=== PATIENT | male | born 1965 | race Caucasian/White ===

== ENCOUNTER 2016-11-23 17:01 | Emergency (ER) | payer OTHER ==
[~2016-11-23] VITALS: Ht 177.8 cm; Wt 87.7 kg
[~2016-11-23 17:01] MED LIST: ATORVASTATIN CA20 MG PO; CALCIUM CARB1 TABLET PO; CELEXA20 MG PO; CELEXA40 MG PO; CHLORDIAZEPOXID25 MG PO; CITALOPRAM HBR20 MG PO; FOLIC ACID1 MG PO; GABAPENTIN100 MG PO; IMODIUM MS REL1 EACH PO; K-DUR20 MEQ PO; K-TAB10 MEQ PO; LIBRIUM25 MG PO; NEURONTIN300 MG PO; PANTOPRAZOLE SO40 MG PO; PROTONIX40 MG PO; REQUIP0.25 MG PO; THIAMINE HCL100 MG PO; TRAZODONE HCL50 MG PO; Thiamine,Vitamin B1 PO; VANCOCIN HCL125 MG PO; VITAMIN B-1100 MG PO; ZOFRAN ODT4 MG PO
[2016-11-23 17:36] LABS: MCH 32.8 PG (29.0-34.0); MCHC 35.5 G/DL (30.0-36.0); MCV 92.5 FL (86-99); PLATELET COUNT 165 K/uL (156-360); RBC DIS.WIDTH-CV 15.4 % (11.8-14.6); RBC DIS.WIDTH-SD 49.8 % (39-53); RED BLOOD COUNT 4.54 M/uL (4.00-5.50); WHITE BLOOD COUNT 8.7 K/uL (4.1-10.2)
[2016-11-23 17:47] LABS: CHLORIDE 89 mEq/L (99-109); POTASSIUM 2.7 mEq/L (3.7-5.4); SODIUM 137 mEq/L (136-147)
[2016-11-23 17:49] LABS: GLUCOSE 127 mg/dL (70-99)
[2016-11-23 17:50] LABS: ANION GAP 17 MEQ/L (2-14)
[2016-11-23 17:51] LABS: TOTAL BILIRUBIN 3.3 mg/dL (0.0-1.0)
[2016-11-23 17:52] LABS: ALKALINE PHOSPHATASE 145 IU/L (3-129)
[2016-11-23 17:53] LABS: GFR ESTIMATE (CALCULATED) > 59 mL/min/
[2016-11-23 17:54] LABS: UREA NITROGEN (BUN) 8 mg/dL (9-23)
[2016-11-23 19:01] LABS: SERUM ETHYL ALCOHOL < 10 mg/dL
[2016-11-23 21:00] VITALS: BP 143/99
== END 2016-11-23 21:01 | disposition home or self-care (01) ==
LOC: EME 17:01
DX: F10.239 Alcohol dependence with withdrawal, unspecified (principal); K70.10 Alcoholic hepatitis without ascites; E87.6 Hypokalemia; B19.20 Unspecified viral hepatitis C without hepatic coma; E11.9 Type 2 diabetes mellitus without complications; I10 Essential (primary) hypertension; R56.9 Unspecified convulsions; Z86.73 Personal history of transient ischemic attack (TIA), and cerebral infarction without residual deficits; Z86.14 Personal history of Methicillin resistant Staphylococcus aureus infection; Z87.891 Personal history of nicotine dependence
CPT/HCPCS: 80053; 81003; 85027; 86850; 86900; 86901; 99281; 99284; G0480; J2405; J3360; J7030

== ENCOUNTER 2017-01-05 13:38 | Inpatient (IN) | payer OTHER ==
[~2017-01-05] VITALS: Ht 180.3 cm; Wt 90.0 kg
[2017-01-05 14:30] LABS: BASOPHIL COUNT 0.1 K/uL (0-0.1); EOSINOPHIL (%) 0.2 % (0-5); HEMATOCRIT 37.4 % (38.0-50.0); IMMATURE GRANULOCYTE (%) 0.4 % (0.0-0.7); INSTRUMENT ABS NEUTROPHIL CT 6.8 K/uL; MCH 33.6 PG (29.0-34.0); MCV 95.9 FL (86-99); MONOCYTE (%) 6.3 % (3-12); MONOCYTE COUNT 0.6 K/uL (0-0.8); NEUTROPHIL (%) 71.5 % (45-76); NEUTROPHIL COUNT 6.8 K/uL (1.8-6.4); RBC DIS.WIDTH-CV 16.6 % (11.8-14.6); RBC DIS.WIDTH-SD 58.2 % (39-53); WHITE BLOOD COUNT 9.5 K/uL (4.1-10.2)
[2017-01-05 14:38] LABS: CHLORIDE 94 mEq/L (99-109); INTER. NORMALIZED RATIO 1.4; POTASSIUM 3.6 mEq/L (3.7-5.4); PROTHROMBIN TIME 14.8 (9.2-11.2); SODIUM 136 mEq/L (136-147)
[2017-01-05 14:41] LABS: GLUCOSE 113 mg/dL (70-99)
[2017-01-05 14:42] LABS: ANION GAP 13 MEQ/L (2-14); TOTAL BILIRUBIN 2.8 mg/dL (0.0-1.0)
[2017-01-05 14:43] LABS: SERUM ETHYL ALCOHOL > 495 mg/dL
[2017-01-05 14:44] LABS: ALKALINE PHOSPHATASE 211 IU/L (3-129); GFR ESTIMATE (CALCULATED) > 59 mL/min/
[2017-01-05 14:45] LABS: UREA NITROGEN (BUN) 4 mg/dL (9-23)
[2017-01-05 14:48] LABS: LIPASE 81 U/L (1.0-51.0)
[2017-01-05 16:11] LABS: ABS NEUTROPHIL COUNT 8.7; ANISOCYTOSIS 1+; ATYPICAL LYMPHOCYTE 0.9 %; BAND NEUTROPHILS 3.6 % (0-8.0); EOSINOPHIL ABS CT 0; IMM.PLATELET FRACTION 12.2 (1-7); LYMPHOCYTES 3.6 % (15.0-45.0); MACROCYTES 3+; MEAN PLAT.VOLUME 10.5 uM^3 (9.0-12.4); PLAT.SUFFICIENCY DECREASED; PLATELET COUNT 35 K/uL (156-360); POLYCHROMASIA 1+; SEG.NEUTROPHILS 88.3 % (46.0-76.0); SMUDGE CELLS 12.6; TARGET CELLS 1+
[2017-01-06] VITALS (8 sets, daily range): BP systolic 137–177; BP diastolic 79–103
[2017-01-06 11:30] LABS: ADD MIUA? YES; BILIRUBIN SMALL; BLOOD LARGE; COLOR AMBER ((YELLOW)); GLUCOSE (STRIP) NEGATIVE; KETONES NEGATIVE; LEUKOCYTES NEGATIVE; NITRITE NEGATIVE; PROTEIN (STRIP) 30
[2017-01-06 11:32] LABS: EOSINOPHIL (%) 0.3 % (0-5); HEMATOCRIT 34.5 % (38.0-50.0); IMMATURE GRANULOCYTE (%) 0.3 % (0.0-0.7); INSTRUMENT ABS NEUTROPHIL CT 4.6 K/uL; LYMPHOCYTE COUNT 0.6 K/uL (1.0-2.8); MCH 33.4 PG (29.0-34.0); MCHC 34.5 G/DL (30.0-36.0); MCV 96.9 FL (86-99); MONOCYTE (%) 7.9 % (3-12); MONOCYTE COUNT 0.5 K/uL (0-0.8); NEUTROPHIL (%) 80.2 % (45-76); NEUTROPHIL COUNT 4.6 K/uL (1.8-6.4); RBC DIS.WIDTH-SD 60.4 % (39-53); RED BLOOD COUNT 3.56 M/uL (4.00-5.50)
[2017-01-06 12:00] LABS: BACTERIA 1+ /HPF; EPITHELIAL CELLS 1+ /HPF; MUCUS NONE SEEN /LPF; RED BLOOD CELLS TNTC /HPF (0-5); UCUL ADDED? NO; WHITE BLOOD CELLS 0-5 /HPF (0-5)
[2017-01-06] MEDS ORDERED: ESCITALOPRAM OX20 MG PO (12:03)
[2017-01-06 12:09] LABS: WHITE BLOOD COUNT 5.7 K/uL (4.1-10.2)
[2017-01-06] MEDS ORDERED: GABAPENTIN300 MG PO (12:24)
[2017-01-06 12:28] LABS: ABS NEUTROPHIL COUNT 5.1; BAND NEUTROPHILS 0.9 % (0-8.0); EOSINOPHIL ABS CT 0; IMM.PLATELET FRACTION 10.6 (1-7); LYMPHOCYTES 4.3 % (15.0-45.0); MEAN PLAT.VOLUME 11.3 uM^3 (9.0-12.4); PLAT.SUFFICIENCY DECREASED; PLATELET COUNT 32 K/uL (156-360); SEG.NEUTROPHILS 88.7 % (46.0-76.0); SMUDGE CELLS 3.5
[2017-01-06 13:39] LABS: CHLORIDE 99 mEq/L (99-109); POTASSIUM 3.6 mEq/L (3.7-5.4); SODIUM 136 mEq/L (136-147)
[2017-01-06 13:41] LABS: GLUCOSE 103 mg/dL (70-99)
[2017-01-06 13:42] LABS: ANION GAP 12 MEQ/L (2-14)
[2017-01-06 13:44] LABS: ALKALINE PHOSPHATASE 208 IU/L (3-129); SERUM ETHYL ALCOHOL 158 mg/dL
[2017-01-06 13:45] LABS: GFR ESTIMATE (CALCULATED) > 59 mL/min/
[2017-01-06 13:46] LABS: UREA NITROGEN (BUN) 5 mg/dL (9-23)
[2017-01-07] VITALS (11 sets, daily range): BP systolic 120–166; BP diastolic 80–101
[2017-01-07 00:39] LABS: HEMATOCRIT 29.7 % (38.0-50.0); MCH 33.4 PG (29.0-34.0); MCV 98.3 FL (86-99); MEAN PLAT.VOLUME 10.7 uM^3 (9.0-12.4); RBC DIS.WIDTH-CV 17.3 % (11.8-14.6); RBC DIS.WIDTH-SD 62.1 % (39-53); RED BLOOD COUNT 3.02 M/uL (4.00-5.50); WHITE BLOOD COUNT 4.4 K/uL (4.1-10.2)
[2017-01-07 00:40] LABS: PLATELET COUNT 52 K/uL (156-360)
[2017-01-07 07:12] LABS: ALKALINE PHOSPHATASE 195 IU/L (3-129); ANION GAP 9 MEQ/L (2-14); CHLORIDE 99 MEQ/L (99-109); GFR ESTIMATE (CALCULATED) > 59 mL/min/; GLUCOSE 117 mg/dL (70-99); SAMPLE HEMOLYSIS CHECK 0; SAMPLE ICTERIC CHECK 1; SAMPLE LIPEMIA CHECK 0; SODIUM 138 MEQ/L (136-147); TOTAL BILIRUBIN 5.6 MG/DL (0.0-1.0); UREA NITROGEN (BUN) 4 mg/dL (9-23)
[2017-01-07 07:43] LABS: HEMATOCRIT 29.6 % (38.0-50.0); MCHC 34.5 G/DL (30.0-36.0); MCV 98.7 FL (86-99); MEAN PLAT.VOLUME 11.4 uM^3 (9.0-12.4); NRBC (%) 0.5 /100 WBC (0-0); PLATELET COUNT 62 K/uL (156-360); RBC DIS.WIDTH-CV 17.4 % (11.8-14.6); RBC DIS.WIDTH-SD 62.1 % (39-53); WHITE BLOOD COUNT 4.2 K/uL (4.1-10.2)
[2017-01-08] VITALS (8 sets, daily range): BP systolic 114–168; BP diastolic 79–114
[2017-01-08 06:38] LABS: BASOPHIL COUNT 0.1 K/uL (0-0.1); EOSINOPHIL (%) 2.8 % (0-5); EOSINOPHIL COUNT 0.1 K/uL (0-0.3); HEMATOCRIT 32.3 % (38.0-50.0); IMMATURE GRANULOCYTE (%) 0.8 % (0.0-0.7); INSTRUMENT ABS NEUTROPHIL CT 3.4 K/uL; LYMPHOCYTE COUNT 0.8 K/uL (1.0-2.8); MCH 33.3 PG (29.0-34.0); MCHC 33.1 G/DL (30.0-36.0); MCV 100.6 FL (86-99); MEAN PLAT.VOLUME 11.7 uM^3 (9.0-12.4); MONOCYTE (%) 9.6 % (3-12); MONOCYTE COUNT 0.5 K/uL (0-0.8); NEUTROPHIL (%) 68.7 % (45-76); NEUTROPHIL COUNT 3.4 K/uL (1.8-6.4); NRBC (%) 0.8 /100 WBC (0-0); PLATELET COUNT 56 K/uL (156-360); RBC DIS.WIDTH-CV 17.4 % (11.8-14.6); RBC DIS.WIDTH-SD 64.4 % (39-53); RED BLOOD COUNT 3.21 M/uL (4.00-5.50); WHITE BLOOD COUNT 4.9 K/uL (4.1-10.2)
[2017-01-08 07:35] LABS: ANION GAP 8 MEQ/L (2-14); CHLORIDE 102 MEQ/L (99-109); GFR ESTIMATE (CALCULATED) > 59 mL/min/; GLUCOSE 104 mg/dL (70-99); SAMPLE HEMOLYSIS CHECK 0; SAMPLE ICTERIC CHECK 1; SAMPLE LIPEMIA CHECK 0; SODIUM 139 MEQ/L (136-147); UREA NITROGEN (BUN) 3 mg/dL (9-23)
[2017-01-08 17:43] LABS: C DIFF TOXIN POSITIVE (NEGATIVE)
[2017-01-08 17:45] LABS: PROBE CHECK PASS
[2017-01-09 02:38] VITALS: BP 83/52
[2017-01-09 03:44] VITALS: BP 100/80
[2017-01-09 07:14] LABS: BASOPHIL COUNT 0.1 K/uL (0-0.1); EOSINOPHIL (%) 3.4 % (0-5); EOSINOPHIL COUNT 0.2 K/uL (0-0.3); HEMATOCRIT 32.5 % (38.0-50.0); IMMATURE GRANULOCYTE (%) 0.4 % (0.0-0.7); INSTRUMENT ABS NEUTROPHIL CT 3.1 K/uL; MCH 33.6 PG (29.0-34.0); MCHC 32.9 G/DL (30.0-36.0); MCV 102.2 FL (86-99); MEAN PLAT.VOLUME 11.4 uM^3 (9.0-12.4); MONOCYTE (%) 12.9 % (3-12); MONOCYTE COUNT 0.7 K/uL (0-0.8); NEUTROPHIL (%) 61.9 % (45-76); NEUTROPHIL COUNT 3.1 K/uL (1.8-6.4); PLATELET COUNT 58 K/uL (156-360); RBC DIS.WIDTH-CV 18.3 % (11.8-14.6); RBC DIS.WIDTH-SD 68.1 % (39-53); RED BLOOD COUNT 3.18 M/uL (4.00-5.50)
[2017-01-09 08:08] LABS: ANION GAP 7 MEQ/L (2-14); CHLORIDE 103 MEQ/L (99-109); GFR ESTIMATE (CALCULATED) > 59 mL/min/; POTASSIUM 3.4 MEQ/L (3.7-5.4); SAMPLE HEMOLYSIS CHECK 0; SAMPLE ICTERIC CHECK 2; SAMPLE LIPEMIA CHECK 0; SODIUM 137 MEQ/L (136-147); UREA NITROGEN (BUN) 4 mg/dL (9-23)
[2017-01-09 08:19] LABS: GLUCOSE 71 mg/dL (70-99)
[2017-01-09 08:54] VITALS: BP 130/100
[2017-01-09 09:26] VITALS: BP 102/76
[2017-01-09 17:04] LABS: TYPE OF FLUID PERITONEAL
[2017-01-09 17:43] LABS: BODY FLUID EOSINOPHILS 0 % (0-25); BODY FLUID RBC'S 1000 /MM^3 (0-100); BODY FLUID WBC'S 45 /MM^3 (0-500); MONONUCLEAR WBC'S 92 %; POLYNUCLEAR WBC'S 8 % (0-25)
[2017-01-09 19:53] VITALS: BP 148/89
[2017-01-09 23:44] VITALS: BP 120/68
[2017-01-10 03:16] VITALS: BP 130/70
[2017-01-10 06:52] LABS: HEMATOCRIT 32.7 % (38.0-50.0); MCH 34.1 PG (29.0-34.0); MCHC 33.3 G/DL (30.0-36.0); MCV 102.2 FL (86-99); PLATELET COUNT 75 K/uL (156-360); RBC DIS.WIDTH-CV 19.3 % (11.8-14.6); RBC DIS.WIDTH-SD 71.5 % (39-53); WHITE BLOOD COUNT 5.2 K/uL (4.1-10.2)
[2017-01-10 07:20] LABS: ALKALINE PHOSPHATASE 174 IU/L (3-129); ANION GAP 7 MEQ/L (2-14); CHLORIDE 103 MEQ/L (99-109); GFR ESTIMATE (CALCULATED) > 59 mL/min/; POTASSIUM 3.6 MEQ/L (3.7-5.4); SAMPLE HEMOLYSIS CHECK 0; SAMPLE ICTERIC CHECK 2; SAMPLE LIPEMIA CHECK 0; SODIUM 137 MEQ/L (136-147); UREA NITROGEN (BUN) 6 mg/dL (9-23)
[2017-01-10 07:22] LABS: GLUCOSE 105 mg/dL (70-99); TOTAL BILIRUBIN 9.5 MG/DL (0.0-1.0)
[2017-01-10 07:42] VITALS: BP 110/70
[2017-01-10 11:56] VITALS: BP 110/74
[2017-01-10 15:48] VITALS: BP 104/70
[2017-01-10 19:35] VITALS: BP 121/64
[2017-01-10 23:18] VITALS: BP 132/67
[2017-01-11 03:11] VITALS: BP 100/59
[2017-01-11 06:53] LABS: ALKALINE PHOSPHATASE 156 IU/L (3-129); ANION GAP 4 MEQ/L (2-14); CHLORIDE 102 MEQ/L (99-109); GFR ESTIMATE (CALCULATED) > 59 mL/min/; GLUCOSE 106 mg/dL (70-99); POTASSIUM 3.9 MEQ/L (3.7-5.4); SAMPLE HEMOLYSIS CHECK 0; SAMPLE ICTERIC CHECK 2; SAMPLE LIPEMIA CHECK 0; SODIUM 133 MEQ/L (136-147); TOTAL BILIRUBIN 10.3 MG/DL (0.0-1.0); UREA NITROGEN (BUN) 6 mg/dL (9-23)
[2017-01-11 07:51] VITALS: BP 102/70
[2017-01-11 11:39] VITALS: BP 93/61
[2017-01-11 15:30] VITALS: BP 99/62
[2017-01-11 19:40] VITALS: BP 116/65
[2017-01-11 23:19] VITALS: BP 100/58
[2017-01-12 03:15] VITALS: BP 112/65
[2017-01-12 08:01] VITALS: BP 84/62
[2017-01-12 09:35] LABS: PROTHROMBIN TIME 20.5 (9.2-11.2)
[2017-01-12 09:56] LABS: ALKALINE PHOSPHATASE 149 IU/L (3-129); ANION GAP 6 MEQ/L (2-14); CHLORIDE 106 MEQ/L (99-109); GFR ESTIMATE (CALCULATED) > 59 mL/min/; GLUCOSE 101 mg/dL (70-99); POTASSIUM 4.6 MEQ/L (3.7-5.4); SAMPLE HEMOLYSIS CHECK 0; SAMPLE ICTERIC CHECK 3; SAMPLE LIPEMIA CHECK 0; SODIUM 135 MEQ/L (136-147); UREA NITROGEN (BUN) 5 mg/dL (9-23)
[2017-01-12 09:57] LABS: TOTAL BILIRUBIN 13.1 MG/DL (0.0-1.0)
[2017-01-12 15:50] VITALS: BP 79/52
[2017-01-12 15:57] VITALS: BP 98/62
[2017-01-12 23:21] VITALS: BP 120/62
[2017-01-13 07:18] VITALS: BP 120/59
[2017-01-13 18:13] VITALS: BP 104/62
[2017-01-14 16:00] VITALS: BP 107/82
[2017-01-17 08:16] VITALS: BP 00/00
[2017-01-17] MEDS ORDERED: morphine Sulfate IV (16:36)
[2017-01-17] MEDS ORDERED: MAG-AL PLUS SUS30 ML PO (16:37)
[2017-01-17] MEDS ORDERED: FAMOTIDINE20 MG PO (16:37)
[2017-01-17] MEDS ORDERED: ATIVAN0.5 MG PO (16:50)
[2017-01-31] MEDS ORDERED: KRISTALOSE20 GM PO (14:44)
[2017-01-31] MEDS ORDERED: MORPHINE CON20 MG/M1 PO ×2 (14:45→14:46)
[2017-01-31] MEDS ORDERED: MULTIVITAMIN1 EAC2 PO (14:46)
[2017-01-31] MEDS ORDERED: TYLENOL REGULA325 MG PO (14:47)
[2017-01-31] MEDS ORDERED: SPIRONOLACTONE100 MG PO (14:47)
== END 2017-01-17 18:49 | disposition hospice, home (50) | DRG 372 ==
LOC: EME 13:38 → 5EAST 01-06 12:33 → EDOF 01-06 12:33 → 5EAST 01-06 15:11
PROVIDERS: Emergency Medicine; Family Medicine Sports Medicine; Internal Medicine; Internal Medicine Gastroenterology
PROC: 0W9G3ZX Drainage of Peritoneal Cavity, Percutaneous Approach, Diagnostic (ICD-10-PCS; principal; 2017-01-09)
DX: A04.7 Enterocolitis due to Clostridium difficile (principal); F10.239 Alcohol dependence with withdrawal, unspecified; F10.229 Alcohol dependence with intoxication, unspecified; Y90.8 Blood alcohol level of 240 mg/100 ml or more; E87.1 Hypo-osmolality and hyponatremia; R31.9 Hematuria, unspecified; K82.8 Other specified diseases of gallbladder; E87.6 Hypokalemia; D69.6 Thrombocytopenia, unspecified; K70.11 Alcoholic hepatitis with ascites; K70.31 Alcoholic cirrhosis of liver with ascites; K70.40 Alcoholic hepatic failure without coma; K70.0 Alcoholic fatty liver; E88.09 Other disorders of plasma-protein metabolism, not elsewhere classified; E80.6 Other disorders of bilirubin metabolism; I95.9 Hypotension, unspecified; I10 Essential (primary) hypertension; E11.9 Type 2 diabetes mellitus without complications; E78.5 Hyperlipidemia, unspecified; Z66 Do not resuscitate; Z51.5 Encounter for palliative care; J44.9 Chronic obstructive pulmonary disease, unspecified; D64.9 Anemia, unspecified; B18.2 Chronic viral hepatitis C; R26.2 Difficulty in walking, not elsewhere classified; F41.9 Anxiety disorder, unspecified; F32.9 Major depressive disorder, single episode, unspecified; G89.29 Other chronic pain; M54.5 Low back pain; F17.210 Nicotine dependence, cigarettes, uncomplicated; Z56.0 Unemployment, unspecified; Z86.73 Personal history of transient ischemic attack (TIA), and cerebral infarction without residual deficits; Z91.81 History of falling
CPT/HCPCS: 71010; 74176; 76705; 80048; 80053; 81003; 82140; 82948; 83690; 83735; 84157; 85025; 85027; 85610; 86850; 86900; 86901; 87070; 87205; 87493; 89051; 94799; 99281; 99285; G0480; J0696; J2060; J2270; J2405; J3411; J3430; J3475; J3480; J7030; J7042; J7050; P9035

== ENCOUNTER → 2017-01-31 | Outpatient (CLI) | payer OTHER ==
[~2017-01-31] MED LIST changes: +ATIVAN0.5 MG PO; +ESCITALOPRAM OX20 MG PO; +FAMOTIDINE20 MG PO; +GABAPENTIN300 MG PO; +KRISTALOSE20 GM PO; +MAG-AL PLUS SUS30 ML PO; +MORPHINE CON20 MG/M1 PO; +MULTIVITAMIN1 EAC2 PO; +SPIRONOLACTONE100 MG PO; +TYLENOL REGULA325 MG PO; +morphine Sulfate IV
== END | disposition home or self-care (01) ==
LOC: RAD 12:52
PROC: 0W9G3ZZ Drainage of Peritoneal Cavity, Percutaneous Approach (ICD-10-PCS; principal; 2017-01-31)
DX: R18.8 Other ascites (principal)

== ENCOUNTER → 2017-02-05 | Outpatient (CLI) | payer OTHER ==
[2017-02-05 10:20] LABS: HEMATOCRIT 34.9 % (38.0-50.0); MCH 33.9 PG (29.0-34.0); MCV 102.9 FL (86-99); RBC DIS.WIDTH-CV 15.4 % (11.8-14.6); RBC DIS.WIDTH-SD 58.1 % (39-53); RED BLOOD COUNT 3.39 M/uL (4.00-5.50)
[2017-02-05 10:23] LABS: PLATELET COUNT 158 K/uL (156-360); WHITE BLOOD COUNT 15.6 K/uL (4.1-10.2)
[2017-02-05 10:24] LABS: INTER. NORMALIZED RATIO 1.8; PROTHROMBIN TIME 18.4 (9.2-11.2); PTT 43.7 (25-32)
== END ==
LOC: OPR 08:53 → EDSTATUS 09:00 → OPR 09:00
PROVIDERS: Internal Medicine Geriatric Medicine
DX: K70.11 Alcoholic hepatitis with ascites (principal); F10.288 Alcohol dependence with other alcohol-induced disorder; E11.9 Type 2 diabetes mellitus without complications; D69.6 Thrombocytopenia, unspecified; B19.20 Unspecified viral hepatitis C without hepatic coma; E87.1 Hypo-osmolality and hyponatremia; Z88.0 Allergy status to penicillin
CPT/HCPCS: 49406; 76705; 85027; 85610; 85730; C1729; J3010

== ENCOUNTER → 2017-02-15 | Outpatient (CLI) | payer OTHER ==
[~2017-02-15] MED LIST changes: +KEFLEX250 MG PO
== END ==
LOC: OPR 09:45 → EDSTATUS 09:45 → OPR 09:50
PROC: 0DJ Gastrointestinal System, Inspection (ICD-10-PCS; principal; 2017-02-15)
DX: Z46.82 Encounter for fitting and adjustment of non-vascular catheter (principal); K70.31 Alcoholic cirrhosis of liver with ascites; Z53.09 Procedure and treatment not carried out because of other contraindication